=== PATIENT | male | born 1945 | race Caucasian/White ===

== ENCOUNTER → 2023-12-27 07:43 | Outpatient (REF) | payer OTHER, SELFPAY | LOC: RAD 07:43 | PROVIDERS: ATTENDING PHYSICIAN Internal Medicine Geriatric Medicine | DX: E78.2 Mixed hyperlipidemia (principal); I10 Essential (primary) hypertension; R73.01 Impaired fasting glucose; E03.8 Other specified hypothyroidism; D47.3 Essential (hemorrhagic) thrombocythemia; E55.9 Vitamin D deficiency, unspecified; C61 Malignant neoplasm of prostate; Z13.89 Encounter for screening for other disorder; R10.84 Generalized abdominal pain | CPT/HCPCS: 74177; Q9967 ==